=== PATIENT | female | born 1975 | race Caucasian/White ===

== ENCOUNTER 2020-09-27 08:10 | Day surgery (SDC) | payer OTHER, MEDICAID ==
[2020-09-27 09:39] LABS: INTERNATIONAL RATION (INR) 0.88; PROTHROMBIN TIME 12.2 SEC (11.4-15.4)
[2020-09-27 09:40] LABS: PARTIAL THROMBOPLASTIN TIME 26.2 SEC (23.5-35.8)
[2020-09-27 11:39] LABS: APPEARANCE ALL TUBES CLEAR; COLOR ALL TUBES COLORLESS; CSF TUBE NUMBER 3
[2020-09-27 11:40] LABS: CSF TOTAL VOLUME 21.5 CC; VOLUME TUBE 1 3.5 CC
[2020-09-27 11:43] LABS: RED BLOOD CELL,CSF 0 /uL (0-10)
[2020-09-27 11:44] LABS: WHITE BLOOD CELL,CSF 2 /uL (0-5)
[2020-09-27 11:57] LABS: GLUCOSE,CSF 62 mg/dL (40-70); PROTEIN,CSF 42 mg/dL (12-60)
--- NOTE | 2020-09-27 12:21 | RADIOLOGY REPORT (SQ) ---
EXAM DESCRIPTION: LUMBAR PUNCTURE IMAGES COMPLETED DATE/TIME: 09/27/2020 10:34 am REASON FOR STUDY: BENIGN INTRACRANIAL HYPERTENSION COMPARISON: None. FLUOROSCOPY TIME: 0.1 minutes of fluoroscopy was used. 1 Images saved to PACS. TECHNIQUE: Fluoroscopic guided lumbar puncture with opening and closing pressures. LIMITATIONS: None. PROCEDURE: After written consent and assessment were obtained, the patient was brought into the fluo roscopy room and placed prone on the table. The patient's lower back was prepped in a sterile fashion and an entry site was selected under live fluoroscopic guidance. The entry site was anesthetized wit h 1% lidocaine. A 20 gauge needle was advanced through the skin and into the thecal sac at the level of L 3 -L 4 . An opening pressure of 26 units was obtained. After approximately 21.5 ml of CSF was dr ained, a closing pressure of 17 units was obtained. The needle was removed and a sterile bandage was placed of the site. Specimens were sent to the lab for testing. A fluoroscopic spot image was saved t o PACS confirming level access. FINDINGS: Clear CSF IMPRESSION: Lumbar puncture under fluoroscopy. No immediate complication. COMMENT: Patient medication list reviewed: Yes- Quality ID# [id number]:Eligible professional attests to doc umenting in the medical record they obtained, updated, or reviewed the patient's current medications. Quality ID 145: Final reports for procedures using fluoroscopy that document radiation exposure indic es, or exposure time and number of fluorographic images (if radiation exposure indices are not availa ble) TECHNICAL DOCUMENTATION: Job ID: [id number] 2010 [employer]- All Rights Reserved Reading location - IP/workstation name: [email or web address] [id number]
[2020-09-27 13:00] VITALS: BP 144/97
[2020-09-28 14:37] LABS: ALBUMIN SERUM 4.1 g/dL (3.8-4.8); CSF IGG INDEX 0.5 (0.0-0.7); IGG/ALBUMIN RATIO CSF 0.1 (0.00-0.25); IMMUNOGLOBULIN G CSF 1.9 mg/dL (0.0-8.6)
== END 2020-09-27 12:40 | disposition home or self-care (01) ==
LOC: RAD 08:10
PROVIDERS: ATTEND Specialist
DX: G93.2 Benign intracranial hypertension (principal); R56.9 Unspecified convulsions
CPT/HCPCS: 36415; 62328; 82784; 82945; 84157; 85610; 85730; 87070; 87205; 89050